=== PATIENT | female | born 1970 | race Hispanic/Latino ===

== ENCOUNTER 2022-10-09 10:42 | Emergency (ER) | payer OTHER, SELFPAY ==
--- NOTE | ~2022-10-09 | CT_ITS ---
EXAMINATION: CT brain wo con DATE: 10/09/2022 11:35 INDICATION: Left visual loss. Unequal pupils. TECHNIQUE: Computed tomography (CT) of the head was performed without intravenous contrast. The mA wa s adjusted according to patient size. Iterative reconstruction technique was employed. Exam dose: 60 5.33 mGy-cm total exam DLP. COMPARISON: None FINDINGS: No intracranial mass lesion or hemorrhage or cerebrovascular accident is detected. No midli ne shift or mass effect. No subdural or epidural hematoma. No fracture or bone destruction of the cranial vault. The mastoid air cells and included paranasal sinuses are normally developed and aerated IMPRESSION: No significant abnormality Reviewed, dictated and finalized at [facility]. Reviewed, dictated and finalized at location B. IMPRESSION: No significant abnormality
[2022-10-09 10:44] VITALS: BP 151/79; PULSE 84; RESP 18; TEMP 36.4; O2SAT 99
--- NOTE | 2022-10-09 11:22 | ECG_ITS ---
Measurements Intervals [place] Rate: 84 P: 33 [place]: 146 QRS: 129 QRSD: 75 T: 39 QT: 365 QTc: 434 Interpretive Statements SINUS RHYTHM RIGHT AXIS DEVIATION BORDERLINE ECG NO PREVIOUS ECG AVAILABLE FOR COMPARISON Electronically Signed On 10-09-2022 14:19:40 CDT by Sean Jennings D.O.
--- NOTE | 2022-10-09 11:54 | ED.EYEPROB ---
HPI - Eye Problem General Chief complaint: Eye Problems <Sylvie Houston PA-C - Last Filed: 10/09/22 12:39> Stated complaint: Vision issues L eye <Sylvie Houston PA-C - Last Filed: 10/09/22 12:39> Time Seen by Provider: 10/09/22 11:06 <Sylvie Houston PA-C - Last Filed: 10/09/22 12:39> Source: patient <Sylvie Houston PA-C - Last Filed: 10/09/22 12:39> Mode of arrival: ambulatory <Sylvie Houston PA-C - Last Filed: 10/09/22 12:39> Limitations: no limitations <Sylvie Houston PA-C - Last Filed: 10/09/22 12:39> History of Present Illness HPI Narrative: This is a 52-year-old female that presents to the emergency department for decreased visual acuity. Noted since she woke up this morning. Reports she is only able to see a small portion of her vision centrally in the left eye. No other associated symptoms. No recent injuries. She has not had a previous surgery on this side. Denies fevers or redness. <Sylvie Houston PA-C - Last Filed: 10/09/22 12:39> Related Data Allergies/adverse reactions: Allergies Allergy/AdvReac Type Severity Reaction Status Date / Time Penicillins Allergy Unknown Unverified 01/20/15 03:17 <ySlvie Houston PA-C - Last Filed: 10/09/22 12:39> Review of Systems Review of Systems: CONSTITUTIONAL: Denies fever EYES: Reports visual changes. Denies redness, or discharge. NEUROLOGIC: Denies headache, numbness, or weakness. <Sylvie Houston PA-C - Last Filed: 10/09/22 12:39> All systems reviewed & are unremarkable except as noted in HPI and below <Sylvie Houston PA-C - Last Filed: 10/09/22 12:39> PMFSH Past Medical History Medical History: Medical History (Updated 10/09/22 @ 12:39 by Sylvie Houston PA-C) History of diabetes mellitus History of hyperlipidemia <Sylvie Houston PA-C - Last Filed: 10/09/22 12:39> Social History Social History: Social History (Updated 10/09/22 @ 11:56 by Sylvie Houston PA-C) Smoking status: Never smoker <Sylvie Houston PA-C - Last Filed: 10/09/22 12:39> Exam Narrative: GENERAL: Well-appearing, well-nourished, and in no acute distress. HEAD: Normocephalic, atraumatic. EYES: EOMI. Left pupil is slightly dilated and slow to react. No conjunctival injection or tearing. Visual acuity 20/20 in the right. 20/200 in the left. Eye pressures 20 bilaterally ENT: Nares clear, no rhinorrhea or epistaxis. Mucous membranes moist. Oropharynx without tonsillar hypertrophy exudate or other lesions. Bilateral TMs pearly salter non-bulging NECK: Supple. No adenopathy or masses. CHEST: Clear to auscultation. No respiratory distress. No wheezes rales or rhonchi HEART: Regular rate and rhythm. No murmur heard. Normal peripheral pulses. EXTREMITIES: Normal range of motion. No edema. Strength equal in bilateral upper and lower extremities (5/5) SKIN: Warm, dry, no rash. NEURO: No focal deficits. Alert and oriented x3. Cranial nerves II through XII grossly intact. Normal [id number] PSYCH: Normal mood and affect <Sylvie Houston PA-C - Last Filed: 10/09/22 12:39> Course Course Emergency Course: Patient and family were updated on work-up and agree with further evaluation and management by ophthalmology at [facility] <Sylvie Houston PA-C - Last Filed: 10/09/22 12:39> FLUID DESIGNER/PA Physician Supervision I personally evaluated and examined the patient in conjunction with the APC and agree with the assessment, treatment plan and disposition of the patient as recorded by the APC <Shayy Vincent MD - Last Filed: 10/09/22 18:24> Consultations Consultation #1: Spoke with Dr. Titus about patient and workup, ophthalmology and U. Agrees with transfer to the ER for further evaluation <Sylvie Houston PA-C - Last Filed: 10/09/22 12:39> Date: 10/09/22 <Sylvie Houston PA-C - Last Filed: 10/09/22 12:39> Time: 12:34 <Sylvie Houston PA-C - Last Filed: 10/09/22 12:39> Consultation #2:
[2022-10-09 12:10] LABS: Hematocrit 45.7 % (37.0-47.0); Hemoglobin 14.3 g/dL (12.0-15.0); Mean Corpuscular HGB Conc 31.3 g/dl (32-36); Mean Corpuscular Hemoglobin 26.8 pg (26-34); Mean Corpuscular Volume 85.7 fl (80-100); Platelet Count Result 292 k/mm3 (150-375); Red Blood Count 5.33 M/mm3 (4.2-5.4); Red Cell Distribution Width 15.1 % (11.5-14.5); White Blood Count 7.9 K/mm3 (4.5-10.0)
[2022-10-09 12:11] LABS: Basophils Percent Auto 0.3 % (0.2-1.2); Eosinophils Absolute Auto 0.1 K/mm3 (0-0.3); Eosinophils Percent Auto 0.9 % (0-4.4); Immature Granulocyte Absolute 0.02 K/mm3 (0.00-0.031); Immature Granulocyte Percent A 0.3 % (0-0.5); Lymphocytes Absolute Auto 1.83 K/mm3 (0.9-3.2); Lymphocytes Percent Auto 23.1 % (18.3-44.2); Mean Platelet Volume 9.5 fl (7.4-10.4); Monocytes Absolute Auto 0.4 K/mm3 (0.1-0.6); Monocytes Percent Auto 4.8 % (2.6-8.5); Neutrophils Absolute Auto 5.6 K/mm3 (1.3-6.7); Neutrophils Percent Auto 70.6 % (45.5-73.1)
[2022-10-09 12:19] LABS: Alanine Aminotransferase 23 U/L (6-35); Albumin Level 4.3 g/dL (3.5-5.1); Alkaline Phosphatase 152 U/L (38-126); Anion Gap 5 mmol/L (8-16); Aspartate Amino Transferase 21 U/L (14-36); Bilirubin,Total 0.6 mg/dL (0.2-1.3); Blood Urea Nitrogen 19 mg/dL (7-17); Calcium 8.6 mg/dL (8.4-10.2); Carbon Dioxide 27 mmol/L (22-30); Chloride 107 mmol/L (98-107); Estimated CRCL calculation 79 ml/min; Estimated Glomerular Filt Rate > 60; Glucose 108 mg/dL (65-110); INR 1.1; Potassium 4.7 mmol/L (3.4-5.0); Prothrombin Time 14.1 Seconds (11.1-14.7); Sodium 139 mmol/L (137-145)
[2022-10-09 12:20] LABS: Partial Thromboplastin Time 26.2 SECONDS (22.3-36.8)
[2022-10-09 12:31] LABS: Troponin I < 0.012 ng/mL (0.000-0.034)
[2022-10-09 12:48] VITALS: BP 151/87; PULSE 89; RESP 16; O2SAT 100
== END 2022-10-09 12:53 | disposition short-term general hospital (02) ==
PROVIDERS: Emergency Provider Physician Assistant; PCP Physician Assistant
DX: H54.7 Unspecified visual loss (principal); E11.9 Type 2 diabetes mellitus without complications; E78.5 Hyperlipidemia, unspecified
CPT/HCPCS: 36415; 70450; 80053; 84484; 85025; 85610; 85730; 93005; 99285

== ENCOUNTER 2023-10-26 17:02 | Observation (INO) | payer OTHER, SELFPAY ==
[2023-10-26] VITALS (7 sets, daily range): BP systolic 144–178; BP diastolic 65–84; PULSE 69–89; RESP 16–20; TEMP 36.3–36.6; O2SAT 98–100; BMI 30.2
--- NOTE | ~2023-10-26 | NM_ITS ---
EXAMINATION: NM nelly stress w perfusion DATE: 10/27/2023 11:38 INDICATION: Chest pain. TECHNIQUE: Rest images were obtained following intravenous administration of 10.3 mCi Tc99m tetrofosm in (Myoview). The patient was infused intravenously with Lexiscan (regadenoson). Then, 30.3 mCi Tc99m tetrofosmin (Myoview) was administered intravenously, and supine and prone stress images were obtain ed. Data was reconstructed into short axis and horizontal and vertical long axis SPECT images. Gated SPECT images were also obtained. COMPARISON: None. FINDINGS: There is no definite reversible or fixed perfusion abnormality to suggest ischemia or infar ction. There is no segmental wall motion abnormality. Left ventricular ejection fraction measures > 70%. IMPRESSION: 1. No definite ischemia or infarct. 2. Normal left ventricular ejection fraction measuring >70%. Reviewed, dictated and finalized at location A.
--- NOTE | ~2023-10-26 | XR_ITS ---
EXAMINATION: XR chest 2V Exam Date/Time: 10/26/2023 17:18 CDT HISTORY: MIDSTERNAL CP RADIATING TO BACK, HTN Comparison: 01/20/2015, report only. RESULT: Lines, tubes, and devices: None. Lungs and pleura: Clear. Calcified left lower nodule consistent with granulomatous disease. Cardiomediastinal silhouette: Stable. Other: No acute osseous or upper abdominal finding. IMPRESSION: No acute cardiopulmonary process. Reviewed, dictated and finalized at location K.
--- NOTE | 2023-10-26 17:13 | ECG_ITS ---
Measurements Intervals [place] Rate: 91 P: 48 [place]: 144 QRS: 162 QRSD: 83 T: 61 QT: 372 QTc: 420 Interpretive Statements SINUS RHYTHM LOW VOLTAGE QRS ABNORMAL ECG SEE SCANNED COPY FOR SIGNATURE MTDD
[2023-10-26 18:24] LABS: Basophils Percent Auto 0.2 % (0.2-1.2); Eosinophils Absolute Auto 0.1 K/mm3 (0-0.3); Eosinophils Percent Auto 0.4 % (0-4.4); Hematocrit 44.7 % (37.0-47.0); Hemoglobin 14.1 g/dL (12.0-15.0); Immature Granulocyte Absolute 0.05 K/mm3 (0.00-0.031); Immature Granulocyte Percent A 0.4 % (0-0.5); Lymphocytes Absolute Auto 1.43 K/mm3 (0.9-3.2); Lymphocytes Percent Auto 10.8 % (18.3-44.2); Mean Corpuscular HGB Conc 31.5 g/dl (32-36); Mean Corpuscular Hemoglobin 27.6 pg (26-34); Mean Corpuscular Volume 87.5 fl (80-100); Mean Platelet Volume 9.6 fl (7.4-10.4); Monocytes Absolute Auto 0.5 K/mm3 (0.1-0.6); Monocytes Percent Auto 3.8 % (2.6-8.5); Neutrophils Absolute Auto 11.2 K/mm3 (1.3-6.7); Neutrophils Percent Auto 84.4 % (45.5-73.1); Platelet Count Result 293 k/mm3 (150-375); Red Blood Count 5.11 M/mm3 (4.2-5.4); Red Cell Distribution Width 14.6 % (11.5-14.5); White Blood Count 13.3 K/mm3 (4.5-10.0)
[2023-10-26 18:35] LABS: Alanine Aminotransferase 28 U/L (6-35); Albumin Level 4.2 g/dL (3.5-5.1); Alkaline Phosphatase 214 U/L (38-126); Anion Gap 7 mmol/L (4-12); Aspartate Amino Transferase 28 U/L (14-36); Bilirubin,Total 0.6 mg/dL (0.2-1.3); Blood Urea Nitrogen 20 mg/dL (7-17); Calcium 8.9 mg/dL (8.4-10.2); Carbon Dioxide 25 mmol/L (22-30); Chloride 106 mmol/L (98-107); Estimated CRCL calculation 63 ml/min; Estimated Glomerular Filt Rate 58; Glucose 144 mg/dL (65-110); INR 1.1; Lipase 206 U/L (23-300); Partial Thromboplastin Time 23.3 Seconds (22.3-36.8); Potassium 4.2 mmol/L (3.4-5.0); Prothrombin Time 14.2 Seconds (11.1-14.7); Sodium 138 mmol/L (137-145)
[2023-10-26 18:46] LABS: Troponin I < 0.012 ng/mL (0.000-0.034)
[2023-10-26 18:47] LABS: Troponin I < 0.012 ng/mL (0.000-0.034)
--- NOTE | 2023-10-26 20:03 | ECG_ITS ---
Measurements Intervals [place] Rate: 91 P: 47 [place]: 153 QRS: 119 QRSD: 92 T: 47 QT: 380 AVG RR: 653 QTc: 429 QTCB: 470 QTCF: 438 Interpretive Statements SINUS RHYTHM POSSIBLE RIGHT VENTRICULAR HYPERTROPHY [SOME/ALL OF: PROMINENT R IN V1, LATE TRANSITION, RAD, ANDRESSA, SSS] ABNORMAL ECG SEE SCANNED COPY FOR SIGNATURE MTDD
[2023-10-26] MEDS: BELLADONNA ALK/PHENOB ELIX 10 ML, MAG HYDROX/ALUMINUM HYD/SIMETH 30 ML, LIDOCAINE HCL 2... PO (20:15)
[2023-10-26] MEDS: NITROGLYCERIN SL 0.4 MG TABLET SUBLINGUAL (20:17)
--- NOTE | 2023-10-26 20:17 | ED.GENADULT ---
HPI - General Adult General Chief complaint: Chest Pain Stated complaint: chest pain Time Seen by Provider: 10/26/23 20:01 History of Present Illness HPI narrative: Patient is a 53-year-old female presents in the department chief complaint of chest pain. Patient reports that she is having pain on the left side of her chest patient states the pain is worse with inspiration does report that radiated up into her neck and to her arm. The patient states she feels little short of breath when this happened. Patient does report that she had prior history of a TIA and she had vision loss about a year ago and reports pain has been constant since around 5:00 p.m. this evening. Related Data Allergies Allergy/AdvReac Type Severity Reaction Status Date / Time Penicillins Allergy Mild Nausea and Verified 10/26/23 20:15 Vomiting Review of Systems Review of Systems: A 10 system review of systems was completed on the patient and is negative except for what is stated in the HPI. Nursing and ancillary documentation was reviewed. [facility] Past Medical History Medical History History of diabetes mellitus History of hyperlipidemia Social History Social History Smoking status: Never smoker Exam Narrative: GENERAL: Well-appearing, well-nourished, and in no acute distress. HEAD: Normocephalic, atraumatic. EYES: PERRLA and EOMI. ENT: Nares clear, no rhinorrhea or epistaxis. Mucous membranes moist. NECK: Supple. CHEST: Clear to auscultation. No respiratory distress. HEART: Regular rate and rhythm. No murmur heard. Normal peripheral pulses. ABDOMEN: Soft, nontender, nondistended, normal active bowel sounds. EXTREMITIES: Normal range of motion. No edema. SKIN: Warm, dry, no rash. NEURO: No focal deficits. Alert and oriented x3. PSYCH: Normal mood and affect. Course Vital Signs Vital signs: Vital Signs Temperature 36.3 C L 10/26/23 17:19 Pulse Rate 86 10/26/23 17:19 Respiratory Rate 18 10/26/23 17:19 Blood Pressure 174/82 H 10/26/23 17:19 Pulse Oximetry 100 10/26/23 17:19 Oxygen Delivery Room Air 10/26/23 17:19 Temperature 36.6 C 10/26/23 20:06 Pulse Rate 75 10/26/23 20:06 Respiratory Rate 20 10/26/23 20:06 Blood Pressure 178/84 H 10/26/23 20:06 Pulse Oximetry 100 10/26/23 20:06 Oxygen Delivery Room Air 10/26/23 20:06 Medical Decision Making MDM Narrative Medical decision making narrative: Differential diagnosis includes ACS, atypical chest pain, unstable angina, hypertensive crisis, Patient has prior history of vascular disease having had a prior TIA patient is currently on aspirin Plavix the patient's pain was improved slightly with nitroglycerin and also a GI cocktail. Morphine by me the patient's pain go away initial EKG showed no acute ischemic changes initial troponin was negative. Given the patient has a heart score of 4 the case was discussed with the hospitalist and the patient referred see further care in the inpatient setting. Vital Signs Vital Signs: Vital Signs Temperature 36.3 C L 10/26/23 17:19 Pulse Rate 86 10/26/23 17:19 Respiratory Rate 18 10/26/23 17:19 Blood Pressure 174/82 H 10/26/23 17:19 Pulse Oximetry 100 10/26/23 17:19 Oxygen Delivery Room Air 10/26/23 17:19 Temperature 36.6 C 10/26/23 20:06 Pulse Rate 75 10/26/23 20:06 Respiratory Rate 20 10/26/23 20:06 Blood Pressure 178/84 H 10/26/23 20:06 Pulse Oximetry 100 10/26/23 20:06 Oxygen Delivery Room Air 10/26/23 20:06 Lab Data 10/26/23 18:16 10/26/23 18:16 Labs: Lab Results 10/26/23 10/26/23 10/26/23 Range/Units 18:16 18:16 20:20 WBC 13.3 H (4.5-10.0) K/mm3 RBC 5.11 (4.2-5.4) M/mm3 Hgb 14.1 (12.0-15.0) g/dL Hct 44.7 (37.0-47.0) % MCV 87.5 (80-100) fl MCH 27
--- NOTE | 2023-10-26 20:18 | PC.NURSE ---
2017: BP 189/90, P 90, SPO2 100, RR 19, CP 10/10. First nitro tablet given. 2022: BP 168/82, P 82, SPO2 98, RR 13, CP 8/10. Second nitro tablet given. 2027: BP 167/74, P 88, SPO2 99, RR 18, CP 8/10. Third nitro given.
--- NOTE | 2023-10-26 20:34 | PC.NURSE ---
2032: After third nitro patient states that her pain is 8/10 in epigastric area of chest that still radiates to her left arm. Patients VS BP 152/73, P 76, RR 15, SPO2 97. EDP Dr. Smith notified.
[2023-10-26] MEDS: MORPHINE SULFATE (*CRX) 4 MG/ML INJ IV PUSH (20:42)
[2023-10-26 20:47] LABS: Troponin I < 0.012 ng/mL (0.000-0.034)
--- NOTE | 2023-10-26 21:20 | PM.IMHP ---
H&P: HPI History of Present Illness Date/Time: 10/26/23 21:20 Chief Complaint: chest pain. Narrative: This is a 53-year-old female past medical history significant for TIA, diabetes. Patient presents to the emergency room today after having sudden onset of retrosternal epigastric pain nonradiating accompanied by tremors ,diaphoresis, dry heaving, nonradiating patient rates the pain at 8/10 intensity try drink soda at home but did not help. patient has been in her usual state of health up until this point, denies any orthopnea, PND, leg swelling, palpitations, on and off chest pain with activity patient does have dyspepsia thought that it was probably related to indigestion. In emergency room preliminary workup was essentially nonrevealing . Patient has been placed in observation for further evaluation management and treatment. EXAMINATION:? XR chest 2V Exam Date/Time:? 10/26/2023 17:18 CDT HISTORY: MIDSTERNAL CP RADIATING TO BACK, HTN ? Comparison:? 01/20/2015, report only. RESULT: Lines, tubes, and devices:? None. Lungs and pleura:? Clear. Calcified left lower nodule consistent with granulomatous disease. Cardiomediastinal silhouette:? Stable. Other:? No acute osseous or upper abdominal finding. ? IMPRESSION: No acute cardiopulmonary process. Review of Systems Review of Systems: epigastric retrosternal chest pain Constitutional: Constitutional: Denies chills, Denies fatigue, Denies fever(s), Denies malaise, Denies night sweats, Denies poor appetite and Denies weakness Eyes: Eyes: Denies change in vision ENT: Denies dysphagia, Denies vertigo, Denies dizziness and Denies odynophagia Cardiovascular: Cardiovascular: Reports chest pain at rest, Denies irregular heart rhythm, Denies leg edema, Reports lightheadedness, Denies radiating jaw, neck or arm pain, Denies palpitations and Denies dyspnea Respiratory: Respiratory: Denies chest congestion, Denies cough and Denies dyspnea Gastrointestinal: Gastrointestinal: Denies abdominal pain, Denies dyspepsia, Denies heartburn, Denies diarrhea, Reports nausea and Denies vomiting Genitourinary: Genitourinary: Denies dysuria Musculoskeletal: Musculoskeletal: Denies back pain and Denies myalgias Integumentary/Breasts: Skin/Breast: Denies rash Neurologic: Denies focal weakness and Denies Sensory deficit (Neuro) Psychiatric: Psychiatric: Reports no additional psychiatric complaints and Reports as per HPI Endocrine: Endocrine: Denies cold intolerance, Denies fatigue, Denies flushing, Denies heat intolerance, Denies polyphagia, Denies polydipsia, Denies polyuria and Denies palpitations Hematologic/Lymphatic: Hematologic/Lymphatic: Reports no additional hematologic/lymphatic complaints and Reports as per HPI Allergic/Immunologic: Allergic/Immunologic: Reports no additional allergic/immunologic complaints and Reports as per HPI PMFSH Past Medical History Medical History History of diabetes mellitus History of hyperlipidemia Social History Social History Smoking status: Never smoker Alcohol intake: never Substance use: never Do You Feel Safe in your Home?: Yes Lack of Transportation: No Lack of Food: Never True Current Housing: I Have Housing Concerned About Future Housing: No Difficulty Paying Gas/Electric Bills: No Difficulty Paying for Meds: No Currently Unemployed: No Education: Decline to Answer Difficulty w/ Childcare or Family Care: No Spiritual care concerns: No Meds Home Medications and Allergies Home Medications Medication Instructions Recorded Confirmed Type aspirin 81 mg chewable tablet 81 mg PO DAILY 10/26/23 10/26/23 History atorvastatin 80 mg tablet 80 mg PO HS 10/26/23 10/26/23 History canagliflozin 100 mg tablet 100 mg PO DAILY 10/26/23 10/26/23 History (Invokana) clopidogrel 75 mg ta
--- NOTE | 2023-10-26 22:15 | ADMGEN ---
2210: This patient, Cristina Seth, was admitted to IMU Room 231-01. Patient/family oriented to hospital policies and general routines including ID bracelet, bed and alarms, visiting hours, pain management, procedures, bathroom and other care routines, personal items, smoking policy, room service/diet, and visiting hours. Information on how to activate the Rapid Response Team has been discussed. Patient/Family are encouraged to report perceived risks to care and to ask questions if they do not understand what they are told or what they should do.
[2023-10-26 23:04] LABS: Cholesterol 124 mg/dL (0-200); HDL Direct 42 mg/dL; Triglycerides 66 mg/dL (<150)
[2023-10-26 23:14] LABS: LDL Cholesterol Direct 76 mg/dL
[2023-10-27] VITALS (10 sets, daily range): BP systolic 120–151; BP diastolic 67–79; PULSE 65–112; RESP 16–18; TEMP 36.4–36.6; O2SAT 97–98
--- NOTE | 2023-10-27 | EST_ITS ---
Patient Info Name: Cristina Seth Age: 53 years : 1970 Gender: Female Ht: 66 in Wt: 186 lbs BSA: 2.01 m2 HR: 97 bpm BP: 112 / 70 mmHg Heart Rhythm: Sinus Rhythm Exam Date: 10/27/2023 10:28 AM Exam Location: Echo Lab Patient Status: Inpatient Admit Date: 10/26/2023 Staff Ordering Physician: Jey Pereyra MD Attending Provider: Jey Pereyra MD Exercise Technologist: Priti Mckeon CT Exercise Physician: Sean Jennings DO Exam Type: CA stress nelly w NM Study Info Indications R07.89 - Other chest pain A regadenoson stress test was performed. Summary 1. 1. Negative lexiscan stress test for ischemic ST changes by ECG criteria. 2. 2. Stable hemodynamics throughout the test. 3. 3. Nuclear scan to follow and will be reported separately. Please correlate with it. 4. 4. Patient informed of the above results. Protocol: Lexiscan Stress ECG Details Stage: REST Duration (min): 1 min : 14 sec HR (bpm): 100 SBP (mmHg): 112 DBP (mmHg): 70 Stage: REST Duration (min): 16 min : 22 sec HR (bpm): 109 SBP (mmHg): 112 DBP (mmHg): 70 Stage: STAGE 1 Duration (min): 1 min : 0 sec HR (bpm): 133 SBP (mmHg): 152 DBP (mmHg): 75 Stage: RECOVERY Duration (min): 1 min : 0 sec HR (bpm): 125 SBP (mmHg): 152 DBP (mmHg): 75 Stage: RECOVERY Duration (min): 2 min : 0 sec HR (bpm): 120 SBP (mmHg): 152 DBP (mmHg): 75 Stage: RECOVERY Duration (min): 2 min : 48 sec HR (bpm): 121 SBP (mmHg): 150 DBP (mmHg): 71 Rest HR: 109 bpm Peak HR: 133 bpm Rest Sys BP: 112 mmHg Peak Sys BP: 152 mmHg Max Pred HR: 166 bpm % Max Pred HR: 80 % Target HR: 141 bpm Max RPP: 20,216 bpm*mmHg Termination Reason: Completed protocol Cardiac Symptoms: Shortness of breath Total Time: 1 min : 0 sec Rest [place] BP: 70 mmHg Peak [place] BP: 75 mmHg Total Dose: 0.4 mg Resting ECG Sinus tachycardia, RAD, delayed precordial R/S transition. Stress ECG No ST changes. Arrhythmias None. Report Signatures
[2023-10-27] MEDS: ATORVASTATIN 40 MG TABLET 80 MG PO (00:03)
--- NOTE | 2023-10-27 00:29 | ECG_ITS ---
SEE SCANNED COPY FOR CONFIRMED REPORT MTDD
[2023-10-27 01:26] LABS: Troponin I < 0.012 ng/mL (0.000-0.034)
[2023-10-27] MEDS: ASPIRIN 81 MG CHEWABLE TABLET PO (09:17)
[2023-10-27] MEDS: CLOPIDOGREL BISULFATE 75 MG TABLET PO (09:17)
[2023-10-27] MEDS: lisinopriL 10 MG TABLET PO (09:17)
[2023-10-27] MEDS: EMPAGLIFLOZIN 10 MG TABLET BY MOUTH (09:17)
--- NOTE | 2023-10-27 17:15 | PM.DS ---
DS: Admitting Diagnosis Discharge Date 10/27/23 Admitting Diagnosis chest pain DS: Discharge Diagnosis Discharge Diagnosis (1) Diabetes: Code(s): E11.9 - Type 2 diabetes mellitus without complications Status: Acute (2) Chest pain: Code(s): R07.9 - Chest pain, unspecified Status: Acute (3) Stroke: Code(s): I63.9 - Cerebral infarction, unspecified Status: Acute (4) Hypertension: Code(s): I10 - Essential (primary) hypertension Status: Acute DS: Summary Hospital Course Reason for hospitalization: retrosternal chest pain Hospital Course: Patient is a 53-year-old female with past med history of hyperlipidemia, essential hypertension, type 2 diabetes, history of TIA who presents to ED with complaints of retrosternal chest pain with diaphoresis and dry heaving. she has never had symptoms like this in the past. Her chest pain is not necessarily with activity. Patient does have some dyspepsia for which she is not medicated. in the ED: troponins negative, with her significant story the crushing chest pain retrosternal and diaphoresis patient is admitted for further evaluation. patient had Lexiscan on 10/27/2023 which was negative for a ischemic disease. patient's symptoms also completely resolved and she was recommended to follow-up outpatient with her PCP for further management of likely GERD. Of note TG 66, LDL 76, HDL 42. lipid panel looks good. At time of discharge patient's labs are stable, vitals stable, patient is stable for discharge home. Patient understands and agrees with plan. Time Spent with Patient Time attestation: Total time spent providing and/or coordinating discharge services: 35 minutes Exam Narrative: - GENERAL: pleasant womain in no acute distress. Well-nourished. - EYES: EOMI. Anicteric. - HENT: Moist mucous membranes. - LUNGS: Clear to auscultation bilaterally, no wheezing, rhonchi, or rales. - CARDIOVASCULAR: Regular rate and rhythm. No murmur. No JVD. - ABDOMEN: Soft, non-tender and non-distended. No palpable masses. - EXTREMITIES: No edema. Peripheral pulses 2+. Non-tender. - NEUROLOGIC: No focal neurological deficits. CN II-XII grossly intact. - PSYCHIATRIC: Awake, Alert and oriented x 3. Appropriate mood and affect. - SKIN: No rashes or lesions. Warm. - LYMPH: No cervical lymphadenopathy. DS: Data Data Completed and Pending Labs on day of discharge: Labs from last 24 hours 10/27/23 10/26/23 10/26/23 00:47 20:20 18:16 WBC RBC Hgb Hct MCV MCH MCHC RDW Plt Count MPV Immature Gran % (Auto) Neut % (Auto) Lymph % (Auto) [place] % (Auto) Eos % (Auto) Baso % (Auto) Lymph # (Auto) [place] # (Auto) Eos # (Auto) Baso # (Auto) Abs Immat Gran (auto) Absolute Neuts (auto) Absolute Nucleated RBC Nucleated RBC % PT INR APTT Sodium Potassium Chloride Carbon Dioxide Anion Gap BUN Creatinine Estim Creat Clear Calc Estimated GFR Glucose Calcium Total Bilirubin AST ALT Alkaline Phosphatase Troponin I < 0.012 < 0.012 < 0.012 Total Protein 8.0 Albumin 4.2 Triglycerides 66 Cholesterol 124 LDL Cholesterol Direct 76 HDL Direct 42 Lipase 206 10/26/23 18:16 WBC 13.3 H RBC 5.11 Hgb 14.1 Hct 44.7 MCV 87.5 MCH 27.6 MCHC 31.5 L RDW 14.6 H Plt Count 293 MPV 9.6 Immature Gran % (Auto) 0.4 Neut % (Auto) 84.4 H Lymph % (Auto) 10.8 L [place] % (Auto) 3.8 Eos % (Auto) 0.4 Baso % (Auto) 0.2 Lymph # (Auto) 1.43 [place] # (Auto) 0.5 Eos # (Auto) 0.1 Baso # (Auto) 0.0 Abs Immat Gran (auto) 0.05 H Absolute Neuts (auto) 11.2 H Absolute Nucleated RBC 0.000 Nucleated RBC % 0.0 PT 14.2 INR 1.1 APTT 23.3 Sodium 138 Potassium 4.2 Chloride 106 Carbon Dioxide 25 Anion Gap 7 BUN 20 H Creatinine 1.00 Estim Creat Clear Calc 63 Estimated GFR 58 L Glucose
--- NOTE | 2023-11-11 11:20 | PCCARD ---
EKG ORDERED 10/27/23 @00:18 DOES NOT APPEAR TO HAVE BEEN DONE, CARDIAC TELE MONITORING WAS DOCUMENTED - CANCELLING THIS ORDER
== END 2023-10-27 13:10 | disposition home or self-care (01) ==
LOC: ANHED 21:14 → ANHIMU 10-27 00:17
PROVIDERS: Emergency Medicine; Physician Assistant; Admitting Provider Internal Medicine; Emergency Provider Emergency Medicine; PCP Physician Assistant; Visit Provider Student in an Organized Health Care Education/Training Program
DX: R07.9 Chest pain, unspecified (principal); R42 Dizziness and giddiness; E11.9 Type 2 diabetes mellitus without complications; I10 Essential (primary) hypertension; R11.0 Nausea; E78.5 Hyperlipidemia, unspecified; R94.31 Abnormal electrocardiogram [ECG] [EKG]; Z86.73 Personal history of transient ischemic attack (TIA), and cerebral infarction without residual deficits; Z79.82 Long term (current) use of aspirin; Z79.02 Long term (current) use of antithrombotics/antiplatelets; Z79.899 Other long term (current) drug therapy
CPT/HCPCS: 36415; 71046; 78452; 80053; 80061; 83690; 84484; 85025; 85610; 85730; 93005; 93017; 96374; 99285; A9270; A9502; G0378; J2270; J2785

== ENCOUNTER 2024-06-18 14:22 | Emergency (ER) | payer OTHER, SELFPAY ==
--- NOTE | ~2024-06-18 | XR_ITS ---
XR wrist RT min 3V DATE: 06/18/2024 14:40 INDICATION: Lateral wrist pain following fall, wrist injury TECHNIQUE: 3 views COMPARISON: None FINDINGS: There is a comminuted intra-articular fracture of the distal radius with minimal displaceme nt, and slight dorsal inclination of the distal radial articular surface. The distal ulna is intact. Radiocarpal alignment is preserved. No other fracture or dislocation. IMPRESSION: Comminuted intra-articular fracture of the distal radius Reviewed, dictated and finalized at location [facility]
[2024-06-18 14:23] VITALS: BP 119/87; PULSE 87; RESP 16; TEMP 36.4; O2SAT 98
[2024-06-18] MEDS: HYDROcodone/acetaminophen (*CRX) 5-325 MG TABLET 1 TAB PO (15:24)
--- NOTE | 2024-06-18 15:26 | ED.UPPEXIN ---
HPI - Extremity Injury (Upper) General Chief Complaint: Extremity Injury, Upper Stated Complaint: fell over at grocery store Time Seen by Provider: 06/18/24 14:54 Source: patient Mode of arrival: ambulatory Limitations: no limitations History of Present Illness HPI narrative: this is a 53-year-old female that presents to the emergency department for right wrist pain after an injury today. Reports she slipped and fell and caught herself with her right wrist. Reports swelling and pain to the area. Reports decreased range of motion. Denies numbness. Related Data Home Medications Medication Instructions Recorded Confirmed aspirin 81 mg chewable tablet 81 mg PO DAILY 10/26/23 10/26/23 atorvastatin 80 mg tablet 80 mg PO HS 10/26/23 10/26/23 canagliflozin 100 mg tablet 100 mg PO DAILY 10/26/23 10/26/23 (Invokana) clopidogrel 75 mg tablet 75 mg PO DAILY 10/26/23 10/26/23 lisinopril 10 mg tablet 10 mg PO DAILY 10/26/23 10/26/23 norethindrone acetate 5 mg tablet 5 mg PO DAILY 10/26/23 10/26/23 Allergies Allergy/AdvReac Type Severity Reaction Status Date / Time Penicillins Allergy Mild Nausea and Verified 10/26/23 20:15 Vomiting Review of Systems Review of Systems: CONSTITUTIONAL: Denies fever MUSCULOSKELETAL: Reports joint pain, and myalgia. NEUROLOGIC: Denies numbness, or weakness. All systems reviewed & are unremarkable except as noted in HPI and below PMFSH Past Medical History Medical History History of diabetes mellitus History of hyperlipidemia Social History Social History Smoking status: Never smoker Alcohol intake: never Substance use: never Do You Feel Safe in your Home?: Yes Lack of Transportation: No Lack of Food: Never True Current Housing: I Have Housing Concerned About Future Housing: No Difficulty Paying Gas/Electric Bills: No Difficulty Paying for Meds: No Currently Unemployed: No Education: Decline to Answer Difficulty w/ Childcare or Family Care: No Spiritual care concerns: No Exam Narrative: GENERAL: Well-appearing, well-nourished, and in no acute distress. HEAD: Normocephalic, atraumatic. EYES: EOMI. CHEST: No respiratory distress. HEART: Regular rate EXTREMITIES: Decreased ROM in the right wrist with swelling present. Normal radial pulse. Normal sensation SKIN: Warm, dry, no rash. NEURO: No focal deficits. Alert and oriented x3. PSYCH: Normal mood and affect Course Course Emergency Course: patient and family updated on workup and agree with plan of care Vital Signs Vital signs: Vital Signs Temperature 97.6 F 06/18/24 14:23 Pulse Rate 87 06/18/24 14:23 Respiratory Rate 16 06/18/24 14:23 Blood Pressure 119/87 06/18/24 14:23 Pulse Oximetry 98 06/18/24 14:23 Oxygen Delivery Room Air 06/18/24 14:23 Temperature 97.6 F 06/18/24 14:23 Pulse Rate 87 06/18/24 14:23 Respiratory Rate 16 06/18/24 14:23 Blood Pressure 119/87 06/18/24 14:23 Pulse Oximetry 98 06/18/24 14:23 Oxygen Delivery Room Air 06/18/24 14:23 Procedures Orthopedic Splinting/Casting Injury #1: Splinting/Casting Date: 06/18/24 Splinting/Casting Time: 15:41 Side: right Upper Extremity Injury Location: wrist Upper Extremity Immobilizer: volar splint Splint: customized in ED OCL: volar Pre-Procedure Neuro Vascular Exam: normal Post-Procedure Neuro Vascular Exam: normal MDM - Extremity Injury (Upper) MDM Narrative Medical decision making narrative: Patient presents to the emergency department for right wrist pain and swelling after an injury. It is she is neurovascularly intact. Right wrist x-ray shows comminuted intra-articular fracture of the distal radius. Patient and family updated on workup and agree with plan of care. She was placed in a volar splint. She is to follow up with Orthopedics. She was given warnings to return to the ER Differential Diagnosis Differential diagnosis: Likely sprain and strain of wrist and fracture of wrist Imaging Data Radiologist's impression: ITS Impressions Wrist X-Ray 06/18/24 14:48 IMPRESSION: Comminuted intra-articular fracture of the distal radius Critical Care Time Critical Care Time Critical Care Time: No Discharge Plan Discharge Clinical Impression: Closed fracture of right distal radius Qualifiers: Encounter type: initial encounter Fracture morphology: unspecified fracture morphology Qualified Code(s): S52.501A - Unspecified fracture of the lower end of right radius, initial encounter for closed fracture Patient Disposition: Home, Self-Care Condition: Stable Instructions: Wrist Fracture in Adults (ED) Additional Instructions: Return to the ER if you experience fever, redness and swelling of your extremity, numbness or any other symptoms that are concerning to you Wear splint. No weight on the affected extremity. Ice and elevate. Over the counter pain medication as needed. Prescribed pain medication as needed Follow up with orthopedics (Dr. Kirby) for further care. Call to make an appointment Patient Language: Mohawk Prescriptions: New hydrocodone-acetaminophen 5-325 mg tablet 1 tablet PO Q8H PRN (Reason: pain) Qty: 20 0RF No Action atorvastatin 80 mg tablet 80 mg PO HS clopidogrel 75 mg tablet 75 mg PO DAILY lisinopril 10 mg tablet 10 mg PO DAILY aspirin 81 mg tablet,chewable 81 mg PO DAILY norethindrone acetate 5 mg tablet 5 mg PO DAILY Invokana 100 mg tablet 100 mg PO DAILY Follow-up/Referrals: Carlitos Kirby MD [Physician] - Cristiano,ROSELINE Hoyos [Primary Care Provider] -
[2024-06-18 15:27] VITALS: BP 138/80; PULSE 82; RESP 16; TEMP 36.6; O2SAT 98
--- NOTE | 2024-06-18 15:28 | PC.NURSE ---
splint evaluated by ERP for PMS
== END 2024-06-18 15:43 | disposition home or self-care (01) ==
PROVIDERS: Emergency Provider Physician Assistant; PCP Physician Assistant Medical
DX: S52.501A Unspecified fracture of the lower end of right radius, initial encounter for closed fracture (principal); W01.0XXA Fall on same level from slipping, tripping and stumbling without subsequent striking against object, initial encounter; Z79.82 Long term (current) use of aspirin; E11.9 Type 2 diabetes mellitus without complications; E78.5 Hyperlipidemia, unspecified
CPT/HCPCS: 29125; 73110; 99284; A9270